=== PATIENT | male | born 1965 | race Asian ===

== ENCOUNTER → 2016-05-08 | Outpatient (CLI) | payer OTHER ==
[~2016-05-08] VITALS: Ht 167.6 cm; Wt 77.1 kg
[~2016-05-08] MED LIST: FISH OIL 1,001000 M2 PO; FLAX SEED OIL1000 MG PO; IBUPROFEN 800800 M1 PO; MEDROL DOSPAK21 TA1 PO; METHYLPREDNISOLO4 MG PO; VITAMIN D2000 UNIT PO
--- NOTE | ~2016-05-08 | HPC ---
[facility] [address] [place] [address] PAIN MANAGEMENT CONSULTATION Name: MARYBETH STAPLETON Room #: REG PATRICIA Ton.#: [id number] Admission: 05/08/16 Attend Phys: Susan Villar MD Discharge: Date of : 69 Report #: [id number] THIS REPORT FOR: //name// CC: Félix Liu DATE OF SERVICE: 05/08/2016 CHIEF COMPLAINT: Cervical pain in the neck, shoulder with weakness down into the hand with burning. FOLLOWUP HISTORY: The patient is a 51-year-old gentleman who has had cervical radiculopathy in the past. He has undergone epidural steroid injections. This was in 2014. After the injection, he noted significant improvement in his pain and has been doing reasonably well. Recently, he has noted worsening of his pain and discomfort. 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 and [place] as well. He notes that he is having worsening of the pain and discomfort involves his right arm. It radiates down from his right neck, shoulder to biceps and the forearm. He notes that if he pushes on his shoulder in certain position, he notes an electrical "zing" down into his fingers. He describes it as a burning, constant, twitching, radiating discomfort. He rates it as a 3/10 at this point. He has undergone chiropractic treatment with stretching, which sometimes can be helpful, but he has not had a long-term benefit from that. He has tried nonsteroidal anti-inflammatory medications as well as Neurontin. ALLERGIES: No known drug allergies. CURRENT MEDICATIONS: Multivitamin, fish oil, and flaxseed oil. PAST MEDICAL HISTORY: Unremarkable. PAST SURGICAL HISTORY: Left knee surgery, ACL repair 1990, right knee reconstruction in 1986, and deviated septum. FAMILY HISTORY: Mother at 57, brain hemorrhage. Father in 73, lung cancer. Bother is alive, oldest of heart attack and diabetes, daughter alive, four brothers. SOCIAL HISTORY: Does not use alcohol, does not smoke. PHYSICAL EXAMINATION: Height 5 feet 6 inches, weight is 77 kg, and BMI 27. The patient has pain and discomfort involving the right arm. Notes pain radiating [address] [address] PAIN MANAGEMENT CONSULTATION Name: MARYBETH STAPLETON Room #: REG PATRICIA Maxine#: [id number] Admission: 05/08/16 Attend Phys: Susan Villar MD Discharge: Date of : 69 Report #: [id number] down into the forearm with a burning sensation across the forearm. Occasionally, notes some electrical jolts down into his fingers with certain movements in his shoulder. Perceives some muscle weakness. IMPRESSION: Cervical radiculopathy. RECOMMENDATIONS: We discussed treatment options with the patient. Risks and benefits of an epidural steroid injection were explained. Possible complications were discussed. The patient will undergo a cervical epidural steroid injection as soon as his insurance company this. He would like to undergo this has as soon as possible. He is slated to go to [place] at the end of the week. We would like to thank you for letting us participate in his care. We hope he continues to improve. By: 1227 1420 Susan Villar MD /nt
== END | disposition home or self-care (01) ==
LOC: PAIN 05:57
DX: M54.12 Radiculopathy, cervical region (principal)

== ENCOUNTER → 2017-03-29 | Outpatient (CLI) | payer OTHER ==
[~2017-03-29] VITALS: Ht 167.6 cm; Wt 78.2 kg
[~2017-03-29] MED LIST changes: +IBUPROFEN 200200 M1 PO
--- NOTE | ~2017-03-29 | HPC ---
[facility] [place] [address] PAIN MANAGEMENT CONSULTATION Name: MARYBETH STAPLETON Room #: REG PATRICIA Ortiz.#: [id number] Admission: 03/29/17 Attend Phys: Jose Dwyer MD Discharge: Date of : 69 Report #: [id number] THIS REPORT FOR: //name// CC: Mari Clemons DATE OF SERVICE: 03/29/2017 Followup visit for cervical radiculopathy. This is a followup appointment for the patient who was last seen in our pain clinic in 04/2016. Prior to that, he was seen in 04/2015. He has classic symptoms of cervical radiculopathy. Pain begins in his neck, radiates down into the right arm all the way to the hand, at the C6-C7 distribution. He has a plain film x-ray which shows degenerative changes predominantly at C6-C7, with disk space narrowing and bilateral neural foraminal stenosis at that level. As a result of his clinical and x-ray presentation, we performed a cervical epidural injection at each of his previous visits and he reported substantial, greater than 95%, pain relief nearly immediately that was sustained for up to 9 months. This is an outstanding response. He has avoided surgery. He also has avoided the use of any substantial opioid medication or other treatments. He is very fit and active, does his own exercise program daily. His functioning level is quite high. Of critical importance is the fact that he is taking a trip to [place] [facility] next week. At this time, his pain is high. He scores it as a 5-6 and he is concerned about his upcoming travel with the long flight. He came today hoping for another epidural injection. MEDICATIONS: Reviewed and reconciled. He is on no blood thinners. No current medications, other than multivitamins. ALLERGIES: No allergies. PAST MEDICAL HISTORY: Unremarkable, except for left knee surgery and an ACL repair in 1990. PHYSICAL EXAMINATION: GENERAL: He is a fit, pleasant-appearing 51-year-old. VITAL SIGNS: His blood pressure is 109/80 and heart rate 88. He is 5 feet 6, with a BMI of 27.8. MUSCULOSKELETAL: Cervical range of motion is adequate in all planes, but he has pain radiating into the right arm with neck extension. No focal weakness is noted. Deep tendon reflexes are 2+ biceps, triceps and brachioradialis. Deep tendon reflexes in the lower extremities are 1+ to 2+, with no evidence of [facility] [address] [place] [address] PAIN MANAGEMENT CONSULTATION Name: MARYBETH STAPLETON Room #: REG PATRICIA FranklinTon#: [id number] Admission: 03/29/17 Attend Phys: Jose Dwyer MD Discharge: Date of : 69 Report #: [id number] hyperreflexia. IMPRESSION: Significant right C6-C7 cervical radiculopathy. RECOMMENDATIONS: He has had outstanding response with a single cervical epidural injection. He has a very important upcoming long trip to [place] [facility]. We would have performed the epidural injection for him today, but we would require to provide a preauthorization through his insurance company. There is no reason why this injection should not be performed in my opinion. We will seek preauthorization as quickly as possible. I would like to do the injection at least a few days before he gets on an airplane to travel overseas. I have scheduled him for a return to our clinic on Sunday, my earliest appointment; I will work him into my schedule. As an editorial note, it is certainly inconvenient for the patient, is expensive and inefficient for us to have to through this unnecessary preauthorization process. <ELECTRONICALLY SIGNED> By: Jose Dwyer MD 04/18/17 1640 [id number] [id number] Jose Dwyer MD /nt
[2017-03-29 14:04] VITALS: BP 109/80
== END ==
LOC: PAIN 06:57
DX: M54.12 Radiculopathy, cervical region (principal); Z98.890 Other specified postprocedural states

== ENCOUNTER → 2017-04-05 | Outpatient (CLI) | payer OTHER ==
[~2017-04-05] VITALS: Ht 167.6 cm; Wt 78.0 kg
--- NOTE | ~2017-04-05 | HPC ---
[facility] [address] [address] PAIN MANAGEMENT CONSULTATION Name: MARYBETH STAPLETON Room #: REG PATRICIA Maxine#: [id number] Admission: 04/05/17 Attend Phys: Jose Dwyer MD Discharge: Date of : 69 Report #: [id number] THIS REPORT FOR: //name// CC: Mari Dwyer DATE OF SERVICE: 04/05/2017 Followup visit for cervical radiculopathy. As noted in my previous record, we have had to wait for preauthorization for the patient's cervical epidural injection. This treatment is extremely reasonable, very appropriate and we have received preauthorization to go forward from his insurance company. I might also note here that this preauthorization process has necessitated my patient to change his overseas flight in order to wait until he received his treatment. He was reluctant to travel without receiving this important pain relieving injection. This is yet another sign of how inconvenient and how unreasonable these prolonged preauthorization processes can be. We will proceed today with a cervical epidural injection. I reviewed with a 15-minute consult today additional strategies for him to utilize during his flight and how to manage pain if it develops after the long overseas travel. We have talked about exercise and body mechanics. I have reviewed medication options [id number]. I have also reviewed use of heat and ice and bracing. PHYSICAL EXAMINATION: He is pleasant, alert and oriented without any signs of anxiety, overmedication or depression. His blood pressure is 115/87, heart rate ____. His BMI is 27. He appears fit. He has cervical pain with neck extension and radiating pain into the right arm that follows a C6-C7, C7-T1 distribution. IMPRESSION: Cervical radiculopathy. PROCEDURE: Cervical epidural steroid injection under fluoroscopic guidance. He was taken to fluoroscopic suite, placed prone, skin prepped with ChloraPrep. Skin anesthetized the right of midline at C6-C7. A 20-gauge Tuohy epidural needle was advanced first attempt in the epidural space with loss of resistance. There was no blood nor CSF aspirated. 1 mL of Omnipaque injected. Good spread of dye was seen along the right side of the epidural space, was followed by 3 mL of 1% lidocaine mixed with 80 mg of triamcinolone. He was taken to recovery room for observation. Pain score was 0 at discharge and I plan to see him back [address] [address] PAIN MANAGEMENT CONSULTATION Name: MARYBETH STAPLETON [facility] [id number] Admission: 04/05/17 Attend Phys: Jose Dwyer MD Discharge: Date of : 69 Report #: [id number] on an as needed basis. We do not recommend a series of injections for this condition. <ELECTRONICALLY SIGNED> By: Jose Dwyer MD 04/18/17 [facility] 1002 1145 Jose Dwyer MD /charissa
[2017-04-05 10:13] VITALS: BP 115/87
== END | disposition home or self-care (01) ==
LOC: PAIN 04-02 08:26
DX: M54.12 Radiculopathy, cervical region (principal)